=== PATIENT | male | born 1955 | race Caucasian/White ===

== ENCOUNTER → 2016-09-02 | Outpatient (CLI) | payer MEDICARE, OTHER ==
[~2016-09-02] MED LIST: ADVIL200 M1 PO; ARTIFICIAL TEAR1 DRP OP; ATENOLOL25 MG PO; CENTRUM SILVER PO; CHAPSTICK; COLACE PO; CORTIZONE-1028 GM; FLOMAX0.4 M1 PO; HTN MED; HUGO TRANSPORT1 PKT MC; Immodium PO; KEFLEX PO; MAALOX PLUS PO; MAXZIDE 75/50 T1 TA1 PO; MILK OF MAGNESIA PO; MYSOLINE250 M1 PO; MYSOLINE250 MG PO; MYSOLINE50 M1 PO; OS-CAL 500+D CA1 TAB PO; PRIMIDONE250 MG PO; PROSCAR5 MG PO; ROBITUSSIN DM118 ML PO; SULFAMETHOXAZO1 EACH PO; TEGRETOL PO; TEGRETOL XR400 MG PO; TENORMIN25 MG PO; TRIAMTERENE-HC1 EACH PO; TYLENOL COLD PO; TYLENOL325 M1 PO; VIMPAT50 MG PO; VITAL-D RX TABL1 TAB; ZYVOX600 MG PO; [UNRECOGNIZED DRUG - OTHER]; [UNRECOGNIZED DRUG - OTHER] PO
--- NOTE | ~2016-09-02 | CR58 ---
[facility] A Service of [facility] / [facility] RADIOLOGY TEXT RESULTS PATIENT: TURNER IRVING LOCATION: [facility] : 53 UNIT #: [id number] AGE: [address]: Aleksandar Plasencia MD SEX: M ORDER DR: [id number] [address] [address] [id number] O MR#: [id number] Acc #: [id number] NAME: TURNER IRVING : 1955 SEX: M STUDY DATE/TIME: 09/02/2016 9:38 UNIT: [facility] ROOM: STUDY DESCRIPTION: CR Cervical Spine 2 or 3 Views Attending Physician: Aleksandar Plasencia M.D. Referring Physician: Aleksandar Plasencia M.D. Ordering Physician: Aleksandar Plasencia M.D. Primary Care Physician: Dorothy Medel M.D. MEDICAL IMAGING REPORT This report is preliminary unless electronic signature is present. EXAM Cervical spine 5 views 09/02/2016 HISTORY Neck pain with bilateral arm stiffness for 6 months. FINDINGS 5 views of the cervical spine demonstrate no fracture. There is 2 mm retrolisthesis of C3 on C4 and C4 on C5. There is straightening of the cervical spine with loss of the normal lordotic curve. Moderate disc space narrowing from C3-4 through C6-7 with marginal osteophytes throughout the cervical spine. There is degenerative change involving all of the articular facets. There is no retropharyngeal soft tissue swelling. Note is made of mild cardiac enlargement. Interstitial fibrosis is seen bilaterally. IMPRESSION 1. Degenerative change in the cervical spine. No acute abnormality. 2. Mild cardiac enlargement. 3. Bilateral interstitial pulmonary fibrosis. Dictated by... Everton Jj M.D. THIS IS AN ELECTRONICALLY VERIFIED REPORT Everton Jj M.D. at 09/05/2016 8:14 AM KIRAN/isamar TD: 09/02/2016 16:58 JOB #: [id number] [facility] A Service of [facility] / [facility] RADIOLOGY TEXT RESULTS PATIENT: TURNER IRVING LOCATION: [facility] #: [id number] : 53 UNIT #: [id number] AGE: [address]: Aleksandar Plasencia MD SEX: M ORDER DR: MEDICAL IMAGING REPORT
== END | disposition home or self-care (01) ==
LOC: SRAD 09:28
DX: M25.642 Stiffness of left hand, not elsewhere classified (principal); M47.812 Spondylosis without myelopathy or radiculopathy, cervical region; I51.7 Cardiomegaly; J84.10 Pulmonary fibrosis, unspecified
CPT/HCPCS: 72040